=== PATIENT | male | born 1945 | race Caucasian/White ===

== ENCOUNTER 2023-01-15 22:03 | Emergency (ER) | payer MEDICAID ==
[~2023-01-15] VITALS: Ht 182.9 cm; Wt 83.9 kg
[2023-01-15] MEDS ORDERED: HYDROCODONE/APAP 5/325MG TABLET ONE (23:00)
[2023-01-15] MEDS: HYDROCODONE/APAP 5/325MG TABLET PO ONE (23:03)
[2023-01-15] MEDS ORDERED: HYDR-3972 PO (23:21)
[2023-01-15 23:42] VITALS: BP 158/71; TEMP 97.8; O2SAT 98
== END 2023-01-15 23:43 | disposition home or self-care (01) ==
LOC: ER 22:09
DX: I73.9 Peripheral vascular disease, unspecified (principal); I10 Essential (primary) hypertension
CPT/HCPCS: 93970-TC

== ENCOUNTER 2023-01-17 18:30 | Emergency (ER) | payer MEDICAID, OTHER ==
[~2023-01-17] VITALS: Ht 182.9 cm; Wt 83.9 kg
[~2023-01-17 18:30] MED LIST: HYDR-3972 PO
[2023-01-17 18:34] VITALS: BP 152/66; TEMP 98; O2SAT 97
[2023-01-17] MEDS ORDERED: HYDR-3972 PO ×2 (18:41→19:16)
== END 2023-01-17 19:22 | disposition home or self-care (01) ==
LOC: ER 18:35
DX: I73.9 Peripheral vascular disease, unspecified (principal); I10 Essential (primary) hypertension

== ENCOUNTER 2024-02-06 18:13 | Emergency (ER) | payer MEDICAID ==
[~2024-02-06] VITALS: Ht 172.7 cm; Wt 79.4 kg
[2024-02-06 18:58] VITALS: BP 130/78; TEMP 98.1; O2SAT 99
== END 2024-02-06 21:27 | disposition left against medical advice (07) ==
LOC: ER 18:40
DX: R50.9 Fever, unspecified (principal); Z53.21 Procedure and treatment not carried out due to patient leaving prior to being seen by health care provider